=== PATIENT | female | born 1985 ===

== ENCOUNTER 2025-02-15 07:00 | Day surgery (SDC) | payer OTHER ==
[2025-02-02 12:51] VITALS: BP 115/83
[~2025-02-15] VITALS: Ht 157.5 cm; Wt 72.6 kg
[2025-02-15] MEDS ORDERED: POVIDONE-IODINE 118 ML BOTT TOP ONE (08:54)
[2025-02-15] MEDS ORDERED: IBU600 MG PO (10:02)
== END 2025-02-15 14:35 | disposition home or self-care (01) ==
LOC: CIR.AMB 07:00
PROVIDERS: ATTEND Obstetrics & Gynecology Gynecology
DX: N84.0 Polyp of corpus uteri (principal)